=== PATIENT | female | born 1965 | race Caucasian/White ===

== ENCOUNTER → 2017-01-31 | Outpatient (CLI) | payer MEDICARE, OTHER ==
[2017-01-31 09:59] LABS: HEMOGLOBIN 13.5 gm/dl (12.3-15.3); RED BLOOD COUNT 4.27 M/UL (4.00-5.10); WHITE BLOOD COUNT 5.6 K/UL (4.5-11.0)
[2017-01-31 10:25] LABS: BUN/CREATININE RATIO 21 (0-10)
== END ==
LOC: LAB 08:20
PROVIDERS: Nurse Practitioner Psychiatric/Mental Health
DX: E11.00 Type 2 diabetes mellitus with hyperosmolarity without nonketotic hyperglycemic-hyperosmolar coma (NKHHC) (principal); R53.83 Other fatigue; E55.9 Vitamin D deficiency, unspecified
CPT/HCPCS: 36415; 80053; 80061; 83036; 84439; 84443; 85025

== ENCOUNTER → 2017-04-17 | Outpatient (CLI) | payer MEDICARE, OTHER | LOC: KOH-I 13:28 | DX: R05 Cough (principal) | CPT/HCPCS: 71020 ==

== ENCOUNTER 2021-08-02 15:34 | Emergency (ER) | payer MEDICARE ==
[~2021-08-02 15:34] MED LIST: ECOTRIN81 MG PO
[2021-08-02 16:56] LABS: HEMOGLOBIN 14.4 gm/dl (12.3-15.3); RED BLOOD COUNT 4.43 M/UL (4.00-5.10); WHITE BLOOD COUNT 4.1 K/UL (4.5-11.0)
[2021-08-02 17:22] LABS: BUN/CREATININE RATIO 21 (0-10)
[2021-08-02] MEDS ORDERED: AUGMENTIN 875-1 EACH PO (18:54)
[2021-08-02] MEDS ORDERED: ZOFRAN4 MG PO (18:58)
== END 2021-08-02 18:50 | disposition home or self-care (01) ==
LOC: ER1 15:34
PROVIDERS: Nurse Practitioner
DX: U07.1 COVID-19 (principal); N39.0 Urinary tract infection, site not specified; U09.9 Post COVID-19 condition, unspecified; J44.9 Chronic obstructive pulmonary disease, unspecified; E78.5 Hyperlipidemia, unspecified; I10 Essential (primary) hypertension; Z88.2 Allergy status to sulfonamides; Z91.041 Radiographic dye allergy status; Z79.899 Other long term (current) drug therapy
CPT/HCPCS: 71045; 80053; 81001; 82550; 82553; 83874; 83880; 84484; 85025; 85379; 87077; 87086; 87186; 93005; 96374; 99285; J2405; U0002

== ENCOUNTER 2022-02-21 13:35 | Emergency (ER) | payer OTHER, MEDICARE ==
[~2022-02-21 13:35] MED LIST changes: +AUGMENTIN 875-1 EACH PO; +ZOFRAN4 MG PO
[2022-02-21] MEDS ORDERED: CYCLOBENZAPRINE10 MG PO (15:58)
== END 2022-02-21 16:40 | disposition home or self-care (01) ==
LOC: ER1 13:35
DX: M54.2 Cervicalgia (principal); I10 Essential (primary) hypertension; Z88.2 Allergy status to sulfonamides; Z88.1 Allergy status to other antibiotic agents; V49.9XXA Car occupant (driver) (passenger) injured in unspecified traffic accident, initial encounter
CPT/HCPCS: 70450; 72125; 72128; 72131; 96372; 99284; J2360